=== PATIENT | female | born 1940 | race Caucasian/White ===

== ENCOUNTER 2018-07-03 15:44 | Inpatient (IN) | payer OTHER ==
[~2018-07-03] VITALS: Ht 152.4 cm; Wt 75.1 kg
[~2018-07-03 15:44] MED LIST: ATOR40TA68 PO; FURO-149 PO; HYDR-4037 PO; Hydrocodone Bit/Acetaminophen PO; LISI40TA4 PO; METF500T7 PO; NIFE90TA53 PO; POTA20TA83 PO; RIVA10TA PO
[2018-07-03 15:50] VITALS: BP_SYST 203
[2018-07-03] MEDS ORDERED: NACL 0.9% 1,000 ML IV ONE (15:55)
[2018-07-03] MEDS ORDERED: MORPHINE 4 MG/ML INJ. SYRINGE IVP ONE (16:00)
[2018-07-03] MEDS ORDERED: ONDANSETRON HCL 4 MG/2 ML VIAL IVP ONE (16:00)
[2018-07-03 17:20] LABS: PROTHROMBIN TIME 9.9 SECS (9.5-12.5)
[2018-07-03 17:25] LABS: ANION GAP 6 (5-15); CALCIUM 10.4 mg/dL (8.4-11.0); CHLORIDE 103 mmol/L (98-107); CREATININE 1.19 mg/dL (0.55-1.30); GLUCOSE 126 mg/dL (70-99); POTASSIUM 3.5 mmol/L (3.5-5.1); SODIUM SERUM 136 mmol/L (136-145); UREA NITROGEN, BLOOD 18 mg/dL (8-21)
[2018-07-03 17:25] LABS: BILIRUBIN,URINE NEGATIVE (NEGATIVE); BLOOD, URINE NEGATIVE (NEGATIVE); CLARITY/URINE CLEAR (CLEAR); COLOR,URINE YELLOW (YELLOW); GLUCOSE,URINE NEGATIVE (NEGATIVE); KETONES,URINE NEGATIVE (NEGATIVE); LEUKOCYTE ESTERASE ,URINE NEGATIVE (NEGATIVE); NITRITE, URINE NEGATIVE (NEGATIVE); PH,URINE 6.5 (5.0-8.0); PROTEIN URINE TRACE (NEGATIVE); UROBILINOGEN,URINE 0.2 (0.2-1.0)
[2018-07-03 17:29] LABS: ALANINE AMINOTRANSFERASE 17 U/L (12-78); ALBUMIN 3.4 g/dL (3.4-4.8); AMYLASE 78 U/L (0-100); ASPARTATE AMINOTRANSFERASE 16 U/L (10-37); LIPASE 177 U/L (73-393); TOTAL BILIRUBIN 0.2 mg/dL (0.0-1.0)
[2018-07-03 17:31] LABS: BACTERIA,URINE RARE /HPF (None Seen); HEMOGLOBIN 11.2 g/dL (12.0-16.0); MEAN CORPUSCULAR HEMOGLOBIN 29 pg (27-31); MEAN CORPUSCULAR HGB CONC 33 % (32-36); MEAN CORPUSCULAR VOLUME 89 fL (79.0-98.0); NEUTROPHILS % (AUTO) 57.9 % (40.0-70.0); PLATELET COUNT (AUTO) 327 K/uL (130-430); RBC,URINE 0-3 /HPF (0-3); RED BLOOD CELL COUNT(AUTO) 3.82 MIL/uL (4.2-6.2); RED CELL DISTRIBUTION WIDTH 16.2 % (9.0-15.0); WBC,URINE 0-3 /HPF (0-3); WHITE BLOOD COUNT (AUTO) 5.6 K/uL (4.8-10.8)
[2018-07-03 17:32] LABS: BASOPHILS % (AUTO) 0.9 % (0.0-2.0); EOSINOPHILS # (AUTO) 0.1 K/uL (0.0-0.4); EOSINOPHILS % (AUTO) 2.7 % (0.0-4.0); LYMPHOCYTES # (AUTO) 1.5 K/uL (1.0-5.5); LYMPHOCYTES % (AUTO) 27.6 % (20.5-51.5); MONOCYTES # (AUTO) 0.6 K/uL (0.0-1.0); MONOCYTES % (AUTO) 10.9 % (1.7-9.3); NEUTROPHILS # (AUTO) 3.2 K/uL (1.8-7.7)
[2018-07-03 19:25] VITALS: BP_SYST 209
[2018-07-03 20:00] VITALS: BP_SYST 209
[2018-07-03] MEDS: MORPHINE 4 MG/ML INJ. SYRINGE IVP PRN (21:49)
[2018-07-03] MEDS: hydrALAZINE HCL 25 MG TABLET PO PRN (22:25)
[2018-07-03] MEDS ORDERED: ALBUTEROL SULFATE 0.083% 2.5 MG/3 ML VIAL.NEB INH PRN (23:30)
[2018-07-03] MEDS ORDERED: ACETAMINOPHEN 325 MG TABLET PO PRN (23:30)
[2018-07-04] VITALS (10 sets, daily range): BP systolic 119–201
[2018-07-04] MEDS: MORPHINE 4 MG/ML INJ. SYRINGE IVP PRN ×5 (02:32→21:33)
[2018-07-04] MEDS: hydrALAZINE HCL 25 MG TABLET PO PRN ×2 (02:33→06:13)
[2018-07-04] MEDS ORDERED: LISINOPRIL 20 MG TABLET PO ONE (07:00)
[2018-07-04 07:08] LABS: HEMATOCRIT 33.6 % (36-48); HEMOGLOBIN 11.2 g/dL (12.0-16.0); MEAN CORPUSCULAR HEMOGLOBIN 29 pg (27-31); MEAN CORPUSCULAR VOLUME 87 fL (79.0-98.0); RED BLOOD CELL COUNT(AUTO) 3.85 MIL/uL (4.2-6.2); WHITE BLOOD COUNT (AUTO) 7.4 K/uL (4.8-10.8)
[2018-07-04 07:09] LABS: BASOPHILS % (AUTO) 0.6 % (0.0-2.0); EOSINOPHILS % (AUTO) 0.2 % (0.0-4.0); LYMPHOCYTES # (AUTO) 0.5 K/uL (1.0-5.5); LYMPHOCYTES % (AUTO) 7.3 % (20.5-51.5); MEAN CORPUSCULAR HGB CONC 33 % (32-36); MONOCYTES # (AUTO) 0.4 K/uL (0.0-1.0); MONOCYTES % (AUTO) 5.2 % (1.7-9.3); NEUTROPHILS # (AUTO) 6.4 K/uL (1.8-7.7); NEUTROPHILS % (AUTO) 86.7 % (40.0-70.0); PLATELET COUNT (AUTO) 331 K/uL (130-430); RED CELL DISTRIBUTION WIDTH 16.1 % (9.0-15.0)
[2018-07-04 07:23] LABS: PROTHROMBIN TIME 10.1 SECS (9.5-12.5)
[2018-07-04 07:24] LABS: ANION GAP 6 (5-15); CALCIUM 9.7 mg/dL (8.4-11.0); CHLORIDE 103 mmol/L (98-107); CREATININE 0.98 mg/dL (0.55-1.30); GLUCOSE 202 mg/dL (70-99); POTASSIUM 3.7 mmol/L (3.5-5.1); SODIUM SERUM 137 mmol/L (136-145); UREA NITROGEN, BLOOD 15 mg/dL (8-21)
[2018-07-04 07:34] LABS: ALANINE AMINOTRANSFERASE 14 U/L (12-78); ALBUMIN 3.1 g/dL (3.4-4.8); ASPARTATE AMINOTRANSFERASE 15 U/L (10-37); TOTAL BILIRUBIN 0.3 mg/dL (0.0-1.0)
[2018-07-04] MEDS: ATORVASTATIN 20 MG TABLET PO SCH (08:42)
[2018-07-04] MEDS ORDERED: RIVAROXABAN 10 MG TABLET PO SCH (09:00)
[2018-07-04] MEDS ORDERED: ACETAMINOPHEN 325 MG TABLET PO PRN (09:45)
[2018-07-04] MEDS ORDERED: NIFEDIPINE 90 MG PO SCH (09:45)
[2018-07-04] MEDS ORDERED: ENALAPRILAT DIHYDRATE 1.25 MG/ML VIAL IVP PRN (09:45)
[2018-07-04] MEDS ORDERED: hydrALAZINE HCL 20 MG/ML VIAL IVP PRN (09:45)
[2018-07-04] MEDS ORDERED: cloNIDine HCL 0.1 MG TABLET PO PRN (09:45)
[2018-07-04] MEDS: ONDANSETRON HCL 4 MG/2 ML VIAL IVP PRN ×2 (09:58→17:20)
[2018-07-04] MEDS ORDERED: FUROSEMIDE 40 MG TABLET PO ONE (10:00)
[2018-07-04] MEDS ORDERED: NIFEDIPINE 90 MG TABLET.SA (PROCARDIA XL 90 MG) PO ONE (10:00)
[2018-07-04] MEDS ORDERED: NIFEDIPINE 90 MG PO ONE (10:00)
[2018-07-04] MEDS: INSULIN REGULAR, HUMAN 100 UNITS/ML, 10 ML VIAL (novoLIN R) SUBCUT PRN ×2 (11:45→17:08)
[2018-07-04] MEDS: METOCLOPRAMIDE HCL 10 MG/2 ML VIAL IVP PRN (21:41)
[2018-07-05] MEDS: ONDANSETRON HCL 4 MG/2 ML VIAL IVP PRN (03:48)
[2018-07-05] MEDS: MORPHINE 4 MG/ML INJ. SYRINGE IVP PRN ×2 (03:49→08:49)
[2018-07-05 04:17] VITALS: BP_SYST 116
[2018-07-05 08:00] VITALS: BP_SYST 114
[2018-07-05] MEDS: METOCLOPRAMIDE HCL 10 MG/2 ML VIAL IVP PRN (08:48)
[2018-07-05] MEDS: ATORVASTATIN 20 MG TABLET PO SCH (08:59)
[2018-07-05] MEDS: LISINOPRIL 20 MG TABLET PO SCH (09:00)
[2018-07-05] MEDS ORDERED: FUROSEMIDE 40 MG TABLET PO SCH (09:00)
[2018-07-05] MEDS: NIFEDIPINE 90 MG TABLET.SA (PROCARDIA XL 90 MG) PO SCH (09:00)
[2018-07-05 11:28] VITALS: BP_SYST 126
[2018-07-05] MEDS: RIVAROXABAN 10 MG TABLET PO SCH (14:13)
[2018-07-05 15:53] VITALS: BP_SYST 117
[2018-07-05] MEDS ORDERED: IOHEXOL 350 mgI/mL, 150 ML INFUS..BTL IV ONE (18:32)
[2018-07-05 20:00] VITALS: BP_SYST 149
[2018-07-05] MEDS: INSULIN REGULAR, HUMAN 100 UNITS/ML, 10 ML VIAL (novoLIN R) SUBCUT PRN (21:36)
[2018-07-06 00:34] VITALS: BP_SYST 130
[2018-07-06 07:58] VITALS: BP_SYST 130
[2018-07-06 08:00] VITALS: BP_SYST 123
[2018-07-06] MEDS: ATORVASTATIN 20 MG TABLET PO SCH (09:51)
[2018-07-06] MEDS: NIFEDIPINE 90 MG TABLET.SA (PROCARDIA XL 90 MG) PO SCH (09:52)
[2018-07-06] MEDS: LISINOPRIL 20 MG TABLET PO SCH (09:52)
[2018-07-06] MEDS: RIVAROXABAN 10 MG TABLET PO SCH (09:54)
[2018-07-06 11:52] VITALS: BP_SYST 139
[2018-07-06 12:48] VITALS: BP_SYST 139
[2018-07-06] MEDS ORDERED: RIVA20TA PO (12:53)
[2018-07-06] MEDS ORDERED: ALBUTERAL (12:55)
[2018-07-06] MEDS ORDERED: ALBMDI INH (12:55)
[2018-07-06 15:18] VITALS: BP_SYST 143
== END 2018-07-06 17:00 | disposition home health service (06) | DRG 175 ==
LOC: SED 15:44 → STU 18:38
PROVIDERS: ADMIT Internal Medicine; ATTEND Internal Medicine
DX: I26.99 Other pulmonary embolism without acute cor pulmonale (principal); J96.01 Acute respiratory failure with hypoxia; Y93.89 Activity, other specified; E11.9 Type 2 diabetes mellitus without complications; S70.02XA Contusion of left hip, initial encounter; I44.1 Atrioventricular block, second degree; I48.0 Paroxysmal atrial fibrillation; E78.5 Hyperlipidemia, unspecified; I10 Essential (primary) hypertension; R79.1 Abnormal coagulation profile; W18.30XA Fall on same level, unspecified, initial encounter; Z96.651 Presence of right artificial knee joint; Y92.89 Other specified places as the place of occurrence of the external cause; Y99.8 Other external cause status; Z79.01 Long term (current) use of anticoagulants; Z83.3 Family history of diabetes mellitus; Z91.14 Patient's other noncompliance with medication regimen; Z91.19 Patient's noncompliance with other medical treatment and regimen; Z79.84 Long term (current) use of oral hypoglycemic drugs; Z79.899 Other long term (current) drug therapy
CPT/HCPCS: 36415; 36600; 71045; 71275; 72100-TC; 73502; 73552; 80053; 81000-TC; 82150-TC; 82550-TC; 82803-TC; 82962; 83690-TC; 84484; 85025; 85379; 85610-TC; 85730-TC; 90656; 93005; 93306; 96361; 96374; 96375; 97110-GP; 97116-GP; 97530-GP; 99285; G0378; J1815; J2270; J2405; J2765; J7030; Q9967

== ENCOUNTER 2021-11-21 14:18 | Emergency (ER) | payer OTHER ==
[~2021-11-21] VITALS: Ht 162.6 cm; Wt 68.0 kg
[~2021-11-21 14:18] MED LIST changes: +ALBMDI INH; -FURO-149 PO; -HYDR-4037 PO; +LISI40TA13 PO; -LISI40TA4 PO; +METF-1069 PO; -METF500T7 PO; +NIFE90TA PO; -NIFE90TA53 PO; -POTA20TA83 PO; -RIVA10TA PO; +RIVA20TA PO
[2021-11-21 15:02] VITALS: BP_SYST 236
--- NOTE | 2021-11-21 16:09 | NUR ---
Pt in bed #6 coming from home c/o x4 days having right eye pain, redness, and blurred vision. As well as accompanied by headache 7/10 constant non-radiating. Pt is A&Ox4. Ambulatory with unsteady gait accompanied by daughter. No chest pain and no sob. Denies n/v. NKA. Has hx of pacemaker, DM, HTN, and Hyperlipidemia. BP elevated at 229/107, other vitals stable.
--- NOTE | 2021-11-21 16:13 | NUR ---
ER at bedside examining patient.
--- NOTE | 2021-11-21 16:23 | NUR ---
Daniel pen and morales lamp at bedside.
[2021-11-21] MEDS ORDERED: HYDR-4039 PO (16:30)
[2021-11-21] MEDS ORDERED: METF-834 PO (16:30)
[2021-11-21] MEDS ORDERED: GLIP5TAB26 PO (16:30)
[2021-11-21] MEDS ORDERED: MECL-108 PO (16:30)
[2021-11-21] MEDS ORDERED: TETRACAINE HCL/PF 0.5% OPHTHALMIC DROPS 4 ML OP ONE (16:30)
[2021-11-21] MEDS ORDERED: FURO-150 PO (16:30)
--- NOTE | 2021-11-21 16:31 | NUR ---
Medication reconciliation completed with information provided by patient's medication list. Any prior medication reconciliation on file was reviewed and corrected.
[2021-11-21] MEDS ORDERED: FLUORESCEIN SODIUM 1 MG OPHTHALMIC STRIP OP ONE (16:45)
[2021-11-21] MEDS ORDERED: TIMOLOL MALEATE 0.5% OPHTHALMIC DROPS 5 ML OP SCH (17:00)
[2021-11-21] MEDS ORDERED: MANNITOL 25% 12.5GM/50 ML VIAL IVP ONE (17:00)
[2021-11-21] MEDS ORDERED: BRIMONIDINE TARTRATE 0.2% 5 mL EYE DROPS OP SCH ×2 (17:00→22:00)
[2021-11-21] MEDS ORDERED: BRIMONIDINE TARTRATE 0.2% 5 mL EYE DROPS OP ONE (17:00)
[2021-11-21] MEDS ORDERED: PILOCARPINE 2% OPHTHALMIC DROPS (ISOPTO CARPINE) OP SCH ×2 (17:00→21:00)
[2021-11-21] MEDS ORDERED: TIMOLOL MALEATE 0.5% OPHTHALMIC DROPS 5 ML OP ONE (17:00)
[2021-11-21] MEDS ORDERED: PILOCARPINE 2% OPHTHALMIC DROPS (ISOPTO CARPINE) OP ONE (17:00)
--- NOTE | 2021-11-21 17:06 | NUR ---
# 20 gauge angiocath placed to left AC. Use of asceptic technique. Opsite placed over site. Blood return noted. Blood for lab drawn from site. Flushed with 10 cc of normal saline. No evidence of infiltration noted. Patient tolerated well.
[2021-11-21] MEDS ORDERED: LABETALOL HCL 20 MG/4 ML CARTRIDGE IVP ONE ×2 (17:15→18:00)
[2021-11-21 17:25] LABS: BASOPHILS # (AUTO) 0.1 K/uL (0.0-0.2); EOSINOPHILS # (AUTO) 0.3 K/uL (0.0-0.4); MEAN CORPUSCULAR VOLUME 87 fL (79.0-98.0); MONOCYTES # (AUTO) 0.6 K/uL (0.0-1.0)
[2021-11-21 17:29] LABS: ANION GAP 4 (5-15); CALCIUM 10.5 mg/dL (8.4-11.0); CHLORIDE 99 mmol/L (98-107); CREATININE 1.16 mg/dL (0.55-1.30); GLUCOSE 150 mg/dL (70-99); POTASSIUM 4.1 mmol/L (3.5-5.1); SODIUM SERUM 134 mmol/L (136-145); UREA NITROGEN, BLOOD 13 mg/dL (8-21)
[2021-11-21 17:30] LABS: BASOPHILS % (AUTO) 0.8 % (0.0-2.0); EOSINOPHILS % (AUTO) 3.6 % (0.0-4.0); HEMATOCRIT 32.7 % (36-48); LYMPHOCYTES # (AUTO) 1.8 K/uL (1.0-5.5); LYMPHOCYTES % (AUTO) 23.4 % (20.5-51.5); MEAN CORPUSCULAR HEMOGLOBIN 29 pg (27-31); MEAN CORPUSCULAR HGB CONC 34 % (32-36); MONOCYTES % (AUTO) 8.1 % (1.7-9.3); NEUTROPHILS % (AUTO) 64.1 % (40.0-70.0); PLATELET COUNT (AUTO) 386 K/uL (130-430); RED BLOOD CELL COUNT(AUTO) 3.76 MIL/uL (4.2-6.2); RED CELL DISTRIBUTION WIDTH 14.2 % (9.0-15.0); WHITE BLOOD COUNT (AUTO) 7.7 K/uL (4.8-10.8)
[2021-11-21 17:35] LABS: ALANINE AMINOTRANSFERASE 12 U/L (12-78); ALBUMIN 3.3 g/dL (3.4-4.8); ASPARTATE AMINOTRANSFERASE 14 U/L (10-37); TOTAL BILIRUBIN 0.3 mg/dL (0.0-1.0)
[2021-11-21] MEDS ORDERED: MORPHINE 4 MG INJ. 4 MG/ML VIAL IVP ONE (18:00)
--- NOTE | 2021-11-21 18:03 | NUR ---
NASREENID swabbed, sen to lab.
[2021-11-21 18:10] LABS: ERYTHROCYTE SEDIMENTATION RATE 58 MM/HR (0-20)
[2021-11-21] MEDS ORDERED: MORPHINE 4 MG INJ. 4 MG/ML VIAL ONE (18:40)
[2021-11-21] MEDS ORDERED: ONDA-8 TL (18:43)
[2021-11-21 19:06] VITALS: BP_SYST 179
--- NOTE | 2021-11-21 19:06 | NUR ---
Patient given written and verbal discharge instructions and verbalizes understanding. ER MD discussed with patient the results and treatment provided. Patient in stable condition. ID arm band removed. IV catheter removed intact and dressing applied, no active bleeding. Rx of Zofran given. Patient educated on pain management and to follow up with PMD. Pain Scale 0/10. Opportunity for questions provided and answered. Medication side effect fact sheet provided.
[2021-11-22] MEDS ORDERED: TIMOLOL MALEATE 0.5% OPHTHALMIC DROPS 5 ML OP SCH (09:00)
== END 2021-11-21 19:06 | disposition home or self-care (01) ==
LOC: SED 14:18
DX: H40.211 Acute angle-closure glaucoma, right eye (principal); H54.61 Unqualified visual loss, right eye, normal vision left eye; E11.9 Type 2 diabetes mellitus without complications; I10 Essential (primary) hypertension; Z79.899 Other long term (current) drug therapy; Z20.822 Contact with and (suspected) exposure to COVID-19
CPT/HCPCS: 99291; 96374; 96375; 87426; 80053; 85025; 85651; 36415; 96376; J1120; J2150; J2270

== ENCOUNTER 2021-11-23 10:26 | Emergency (ER) | payer OTHER ==
[~2021-11-23] VITALS: Ht 162.6 cm; Wt 68.0 kg
[~2021-11-23 10:26] MED LIST changes: +FURO-150 PO; +GLIP5TAB26 PO; +HYDR-4039 PO; +MECL-108 PO; +METF-834 PO; +ONDA-8 TL
[2021-11-23 10:30] VITALS: BP_SYST 134
--- NOTE | 2021-11-23 10:35 | NUR ---
Placed in room 8 . Placed on residential monitor, blood pressure machine and pulse oximeter. To gown for exam. Side rails up. Report given to THANH REDDY.
--- NOTE | 2021-11-23 10:46 | NUR ---
Pt BIB dtr for ogoing symptoms with R eye. Pt was seen here Wednesday and did follow up with optho on Wednesday, but remains in pain and with swelling and has currently been unable to get in to see PMD to make further optho appt. Pending MD yang. Addendum: 11/23/21 at 1047 by [email or web address] *ongoing
--- NOTE | 2021-11-23 11:35 | NUR ---
Pt walked ambulatory to rm 4 for continuation of care
[2021-11-23] MEDS ORDERED: PERC10 PO (12:20)
--- NOTE | 2021-11-23 12:20 | NUR ---
ER Dr. Martin at bedside examining patient.
--- NOTE | 2021-11-23 13:02 | NUR ---
Patient given written and verbal discharge instructions and verbalizes understanding. ER MD discussed with patient the results and treatment provided. Patient in stable condition. ID arm band removed. Rx of PERCOCET given. Patient educated on pain management and to follow up with PMD. Pain Scale 0/10. Opportunity for questions provided and answered. Medication side effect fact sheet provided.
== END 2021-11-23 13:02 | disposition home or self-care (01) ==
LOC: SED 10:26
DX: H40.1111 Primary open-angle glaucoma, right eye, mild stage (principal); E11.9 Type 2 diabetes mellitus without complications; I10 Essential (primary) hypertension; Z79.899 Other long term (current) drug therapy
CPT/HCPCS: 99283

== ENCOUNTER 2021-12-12 10:51 | Inpatient (IN) | payer OTHER ==
[~2021-12-12] VITALS: Ht 152.4 cm; Wt 72.6 kg
[~2021-12-12 10:51] MED LIST changes: -ALBMDI INH; -Hydrocodone Bit/Acetaminophen PO; -METF-1069 PO; +PERC10 PO; -RIVA20TA PO
[2021-12-12 10:55] VITALS: BP_SYST 122
--- NOTE | 2021-12-12 10:55 | NUR ---
Patient to ER bed 7 to gown for evaluation. Side rails up. Report given to KASSIE LAW.
--- NOTE | 2021-12-12 11:16 | NUR ---
ER at bedside examining patient.
--- NOTE | 2021-12-12 11:33 | NUR ---
BIB DAUGHTER WITH C/O L SIDED WEAKNESS, UNSTEADY GAIT AND NOT ACTING NORMAL SINCE FALL 12/01. DAUGHTER STATES PT WAS FOUND IN BATHROOM ON THE FLOOR YESTERDAY. NO OBVIOUS SIGNS OF TRAUMA. PT IS CONFUSED BUT HAS BASELINE GCS 15. RESP EVEN AND UNLABORED. VSS. WILL CONT TO MONITOR.
[2021-12-12 11:50] LABS: BASOPHILS % (AUTO) 0.5 % (0.0-2.0); EOSINOPHILS # (AUTO) 0.1 K/uL (0.0-0.4); EOSINOPHILS % (AUTO) 1.6 % (0.0-4.0); HEMATOCRIT 32.2 % (36-48); LYMPHOCYTES # (AUTO) 1.1 K/uL (1.0-5.5); LYMPHOCYTES % (AUTO) 12.1 % (20.5-51.5); MEAN CORPUSCULAR HEMOGLOBIN 30 pg (27-31); MEAN CORPUSCULAR HGB CONC 34 % (32-36); MEAN CORPUSCULAR VOLUME 87 fL (79.0-98.0); MONOCYTES # (AUTO) 0.5 K/uL (0.0-1.0); MONOCYTES % (AUTO) 5.8 % (1.7-9.3); PLATELET COUNT (AUTO) 303 K/uL (130-430); RED BLOOD CELL COUNT(AUTO) 3.71 MIL/uL (4.2-6.2); RED CELL DISTRIBUTION WIDTH 15.2 % (9.0-15.0); WHITE BLOOD COUNT (AUTO) 8.8 K/uL (4.8-10.8)
[2021-12-12 12:07] LABS: BILIRUBIN,URINE NEGATIVE (NEGATIVE); BLOOD, URINE NEGATIVE (NEGATIVE); CLARITY/URINE SL CLOUDY (CLEAR); COLOR,URINE YELLOW (YELLOW); GLUCOSE,URINE NEGATIVE (NEGATIVE); KETONES,URINE NEGATIVE (NEGATIVE); LEUKOCYTE ESTERASE ,URINE NEGATIVE (NEGATIVE); NITRITE, URINE NEGATIVE (NEGATIVE); PH,URINE 5.5 (5.0-8.0); PROTEIN URINE NEGATIVE (NEGATIVE); UROBILINOGEN,URINE 0.2 (0.2-1.0)
[2021-12-12 12:12] LABS: ANION GAP 13 (5-15); CALCIUM 11.1 mg/dL (8.4-11.0); CHLORIDE 107 mmol/L (98-107); CREATININE 1.43 mg/dL (0.55-1.30); GLUCOSE 85 mg/dL (70-99); SODIUM SERUM 138 mmol/L (136-145); UREA NITROGEN, BLOOD 20 mg/dL (8-21)
[2021-12-12 12:17] LABS: BARBITURATE, URINE NEGATIVE (NEG <=200); BENZODIAZEPINE, URINE NEGATIVE (NEG <=150); CANNABINOID, URINE NEGATIVE (NEG <=50); COCAINE, URINE NEGATIVE (NEG <=150); METHAMPHETAMINES SCREEN,URINE NEGATIVE (NEG <=500); OPIATE, URINE NEGATIVE (NEG <=100); PHENCYCLIDINE SCREEN,URINE NEGATIVE (NEG <=25); UR TRICYCLIC ANTIDEPRESSANTS NEGATIVE (NEG <=300); URINE AMPHETAMINE NEGATIVE (NEG <=500); URINE METHADONE NEGATIVE (NEG <=200); URINE OXYCODONE SCREEN NEGATIVE (NEG <=100); URINE PROPOXYPHENE SCREEN NEGATIVE (NEG <=300)
[2021-12-12 12:17] LABS: PROTHROMBIN TIME 10.5 SECS (9.5-12.5)
[2021-12-12 12:22] LABS: ALANINE AMINOTRANSFERASE 17 U/L (12-78); ALBUMIN 3.3 g/dL (3.4-4.8); ASPARTATE AMINOTRANSFERASE 40 U/L (10-37); TOTAL BILIRUBIN 0.6 mg/dL (0.0-1.0)
[2021-12-12 12:23] LABS: ALCOHOL, BLOOD < 3 mg/dL (<10)
[2021-12-12] MEDS ORDERED: POTASSIUM CHLORIDE 20 MEQ TAB.PRT.SR PO ONE (13:15)
[2021-12-12] MEDS ORDERED: ASPIRIN 325 MG TABLET PO ONE (13:15)
--- NOTE | 2021-12-12 13:24 | NUR ---
PT RSTING COMFORTABLY WITH DAUGHTER AT BEDSIDE. PT APPEARS MORE ALERT, TALKING TO DAUGHTER. DENIES CHEST PAIN OR SOB. NO DISTRESS NOTED. VSS. RESP EVEWN AND UNLABORED. AWAITING ADMISSION. WILL CONT TO MONITOR
[2021-12-12] MEDS ORDERED: BRI.2% (14:01)
[2021-12-12] MEDS ORDERED: MECO10005 (14:01)
[2021-12-12] MEDS ORDERED: ACET500C48 PO (14:01)
[2021-12-12] MEDS ORDERED: LATA2.5D14 (14:01)
[2021-12-12] MEDS ORDERED: DORZ10DR13 (14:01)
--- NOTE | 2021-12-12 14:14 | NUR ---
NASREENID Swabbed, sent to lab.
--- NOTE | 2021-12-12 15:30 | NUR ---
NO CHANGE IN STATUS. RESP EVEN AND UNLABORED. VSS. AWAITING TELE BED
[2021-12-12] MEDS ORDERED: 0.45% NACL 1,000 ML IV SCH (17:45)
[2021-12-12] MEDS ORDERED: INSULIN REGULAR, HUMAN 100 UNITS/ML, 10 ML VIAL (humuLIN R) SUBCUT PRN (17:45)
[2021-12-12] MEDS: LATANOPROST 2.5 ML DROPS (XALATAN) OP SCH (18:00)
[2021-12-12 18:33] VITALS: BP_SYST 143
[2021-12-12 20:00] VITALS: BP_SYST 126
[2021-12-12] MEDS: hydrALAZINE HCL 25 MG TABLET PO SCH (20:43)
[2021-12-12] MEDS: DORZOLAMIDE HCL/TIMOLOL MAL. 10 ML EYE DROPS (COSOPT) OP SCH (20:43)
[2021-12-12] MEDS: BRIMONIDINE TARTRATE 0.2% 5 mL EYE DROPS OP SCH (20:44)
--- NOTE | 2021-12-12 22:16 | NUR ---
Patient in bed. No acute distress noted. Turned repositioned q2.
[2021-12-13] VITALS: BP_SYST 134
--- NOTE | 2021-12-13 04:07 | NUR ---
Patient pulled out her IV x2.
[2021-12-13 07:34] LABS: BASOPHILS # (AUTO) 0.1 K/uL (0.0-0.2); BASOPHILS % (AUTO) 0.9 % (0.0-2.0); EOSINOPHILS # (AUTO) 0.2 K/uL (0.0-0.4); EOSINOPHILS % (AUTO) 3.3 % (0.0-4.0); HEMATOCRIT 30.7 % (36-48); HEMOGLOBIN 10.5 g/dL (12.0-16.0); LYMPHOCYTES # (AUTO) 1.5 K/uL (1.0-5.5); LYMPHOCYTES % (AUTO) 22.1 % (20.5-51.5); MEAN CORPUSCULAR HEMOGLOBIN 30 pg (27-31); MEAN CORPUSCULAR HGB CONC 34 % (32-36); MEAN CORPUSCULAR VOLUME 87 fL (79.0-98.0); MONOCYTES # (AUTO) 0.5 K/uL (0.0-1.0); MONOCYTES % (AUTO) 7.8 % (1.7-9.3); NEUTROPHILS # (AUTO) 4.4 K/uL (1.8-7.7); NEUTROPHILS % (AUTO) 65.9 % (40.0-70.0); PLATELET COUNT (AUTO) 269 K/uL (130-430); RED BLOOD CELL COUNT(AUTO) 3.52 MIL/uL (4.2-6.2); RED CELL DISTRIBUTION WIDTH 15.8 % (9.0-15.0); WHITE BLOOD COUNT (AUTO) 6.7 K/uL (4.8-10.8)
[2021-12-13 08:00] VITALS: BP_SYST 136
--- NOTE | 2021-12-13 08:00 | NUR ---
Initial Notes Patient in bed resting, awake. Patient is AOx3, confused. No s/s of distress noted. No SOB noted. Breathing is even and nonlabored, on room air. Patient denies pain. Vital Signs obtained, as documented. Safety precautions in place and call light within reach. Addendum: 12/13/21 at 1633 by Caitlyn Hurtado LVN Initial Notes Patient in bed resting, awake. Patient is AOx3, confused. No s/s of distress noted. No SOB noted. Breathing is even and nonlabored, on room air. Patient denies pain. Vital Signs obtained, as documented. Patient NPO. Patient to have US of the abdomen today. Safety precautions in place and call light within reach.
[2021-12-13 08:09] LABS: ALANINE AMINOTRANSFERASE 16 U/L (12-78); ALBUMIN 2.8 g/dL (3.4-4.8); ANION GAP 10 (5-15); ASPARTATE AMINOTRANSFERASE 32 U/L (10-37); CALCIUM 11.1 mg/dL (8.4-11.0); CHLORIDE 109 mmol/L (98-107); CREATININE 1.39 mg/dL (0.55-1.30); GLUCOSE 106 mg/dL (70-99); POTASSIUM 3.4 mmol/L (3.5-5.1); SODIUM SERUM 137 mmol/L (136-145); TOTAL BILIRUBIN 0.3 mg/dL (0.0-1.0); UREA NITROGEN, BLOOD 25 mg/dL (8-21)
[2021-12-13] MEDS: hydrALAZINE HCL 25 MG TABLET PO SCH ×2 (09:25→21:03)
[2021-12-13] MEDS: lisinopriL 20 MG TABLET PO SCH (09:25)
[2021-12-13] MEDS: ATORVASTATIN 20 MG TABLET PO SCH (09:26)
[2021-12-13] MEDS: DORZOLAMIDE HCL/TIMOLOL MAL. 10 ML EYE DROPS (COSOPT) OP SCH ×2 (09:26→21:04)
[2021-12-13] MEDS: BRIMONIDINE TARTRATE 0.2% 5 mL EYE DROPS OP SCH ×2 (09:27→21:04)
--- NOTE | 2021-12-13 11:30 | NUR ---
Notes Patient has been cleaned and repositioned. Ultrasound was done. Family at bedside. Safety precautions in place and call light within reach.
[2021-12-13] MEDS: D5/0.45 NS 1,000 ML IV SCH (12:21)
--- NOTE | 2021-12-13 12:30 | NUR ---
Notes Patient was evaluated by PT earlier. Patient is now eating lunch. Sitting at the edge of the bed. Family at bedside. Safety precautions in place and call light within reach.
[2021-12-13 12:41] VITALS: BP_SYST 109
--- NOTE | 2021-12-13 15:30 | NUR ---
PT WAS SEEN FOR DYSPHAGIA. PT WAS ABLE TO SAFELY SWALLOW MS DIET WITH THIN LIQUID WITHOUT S/S OF ASPIRATION. RECOMMENDATION MS DIET WITH THIN LIQUID
--- NOTE | 2021-12-13 16:33 | NUR ---
Notes Patient is resting, eyes closed. No s.s of distress noted. NO SOB. No facial grimace noted. Breathing is even and nonlabored. Safety precautions in place and call light within reach.
[2021-12-13] MEDS: LATANOPROST 2.5 ML DROPS (XALATAN) OP SCH (17:06)
[2021-12-13 17:09] VITALS: BP_SYST 144
[2021-12-13 19:35] VITALS: BP_SYST 147
--- NOTE | 2021-12-13 19:36 | NUR ---
Closing Notes Patient is resting. Family at bedside. Breathing is even and nonlabored, on room air. Denies pain. NO distress noted. NO SOB. All needs met. Endorsed care to incoming nurse. Safety precautions in place and call light within reach.
--- NOTE | 2021-12-13 19:40 | NUR ---
INITIAL NOTE AT INITIAL ASSESSMENT, PATIENT IS RESTING IN BED, STABLE, NO SIGNS OF RESPIRATORY DISTRESS. PATIENT VERBALIZES NO PAIN. PLAN OF CARE FOR THE EVENING IS COMMUNICATED WITH THE PATIENT AND HER DAUGHTER AT BEDSIDE. CALL LIGHT TEACH BACK IS UNSUCCESSFUL DUE TO PATIENT'S COGNITIVE IMPAIRMENT; PATIENT IS PLEASANTLY CONFUSED. SHE WILL BE IN AN ROOM CLOSE TO THE NURSING STATION FOR CLOSE MONITORING. BED IS LOCKED, ALARMED, AND AT THE LOWEST LEVEL. FALL, SAFETY, AND ASPIRATION PRECAUTIONS WILL BE IN PLACE THROUGHOUT THE SHIFT.
--- NOTE | 2021-12-13 20:18 | NUR ---
COMMUNICATION W/ Gypsy PATRICK. DR. GONZALEZ PAGED TO CLARIFY WHAT TIME HE WOULD TO SCHEDULE TROPONIN DRAW SINCE THEY WERE NOT ABLE TO DRAW DURING AM SHIFT. DR. GONZALEZ ASKED FOR TROPONIN TO BE DRAWN STAT. ORDER READ BACK, VERIFIED, AND WILL BE CARRIED OUT IMMEDIATELY.
--- NOTE | 2021-12-13 20:30 | NUR ---
HYGIENE CARE PATIENT PLACED ON BEDPAN FOR VOID. PATIENT TOLERATED WELL. HYGIENE CARE PROVIDED. SHE IS REPOSITIONED FOR COMFORT. BED IS LOCKED, ALARMED, AND AT THE LOWEST LEVEL.
[2021-12-13] MEDS: DONEPEZIL HCL 5 MG TABLET (ARICEPT) PO SCH (21:02)
--- NOTE | 2021-12-13 23:55 | NUR ---
COMMUNICATION W/ DR. CARLOS GONZALEZ PAGED, PATIENT'S COMPLAINT OF PAIN COMMUNICATED, PATIENT'S DAUGHTER'S REQUEST FOR MRI OF THE HEAD TO RULE OUT STROKE ALSO COMMUNICATED. DR. GONZALEZ GRANTED NEW ORDERS. ALL ORDERS READ BACK, VERIFIED, AND WILL BE CARRIED OUT AT THIS TIME.
[2021-12-14] VITALS (7 sets, daily range): BP systolic 112–161
[2021-12-14] MEDS ORDERED: ACETAMINOPHEN 325 MG TABLET PO PRN
--- NOTE | 2021-12-14 00:11 | NUR ---
CONSULTATION CALLED FOR DR. BACON FOR CONSULT OF CHEST PAIN ORDER BY DR. GONZALEZ SPOKE WITH, STAFF HUNG UP PHONE BEFORE NAME WAS TAKEN
--- NOTE | 2021-12-14 06:45 | NUR ---
CLOSING NOTE PATIENT REMAINED SLIGHTLY CONFUSED DURING THE NIGHT, SHE ALSO DEMONSTRATED LEFT SIDED DEFICITS ON UPPER AND LOWER EXTREMITY, NO FACIAL DROOP OR DIFFICULTY SWALLOWING. SHE SLEPT WELL DURING THE SHIFT. AT THIS TIME, PATIENT IS RESTING IN BED, STABLE, NO SIGNS OF RESPIRATORY DISTRESS. BED IS LOCKED, AND AT THE LOWEST LEVEL. FALL, AND SAFETY PRECAUTIONS HAVE BEEN IN PLACE THROUGHOUT THE SHIFT.
[2021-12-14 07:08] LABS: BASOPHILS # (AUTO) 0.1 K/uL (0.0-0.2); EOSINOPHILS # (AUTO) 0.3 K/uL (0.0-0.4); EOSINOPHILS % (AUTO) 4.5 % (0.0-4.0); HEMATOCRIT 30.6 % (36-48); HEMOGLOBIN 10.4 g/dL (12.0-16.0); LYMPHOCYTES # (AUTO) 1.4 K/uL (1.0-5.5); LYMPHOCYTES % (AUTO) 22.9 % (20.5-51.5); MEAN CORPUSCULAR HEMOGLOBIN 30 pg (27-31); MEAN CORPUSCULAR HGB CONC 34 % (32-36); MEAN CORPUSCULAR VOLUME 88 fL (79.0-98.0); MONOCYTES # (AUTO) 0.4 K/uL (0.0-1.0); MONOCYTES % (AUTO) 6.9 % (1.7-9.3); NEUTROPHILS % (AUTO) 64.7 % (40.0-70.0); PLATELET COUNT (AUTO) 278 K/uL (130-430); RED BLOOD CELL COUNT(AUTO) 3.49 MIL/uL (4.2-6.2); RED CELL DISTRIBUTION WIDTH 15.5 % (9.0-15.0); WHITE BLOOD COUNT (AUTO) 6.2 K/uL (4.8-10.8)
[2021-12-14 07:21] LABS: ALANINE AMINOTRANSFERASE 15 U/L (12-78); ALBUMIN 2.8 g/dL (3.4-4.8); ANION GAP 9 (5-15); ASPARTATE AMINOTRANSFERASE 23 U/L (10-37); CALCIUM 10.3 mg/dL (8.4-11.0); CHLORIDE 106 mmol/L (98-107); CREATININE 1.35 mg/dL (0.55-1.30); GLUCOSE 134 mg/dL (70-99); POTASSIUM 3.4 mmol/L (3.5-5.1); SODIUM SERUM 135 mmol/L (136-145); TOTAL BILIRUBIN 0.3 mg/dL (0.0-1.0); UREA NITROGEN, BLOOD 20 mg/dL (8-21)
[2021-12-14] MEDS: D5/0.45 NS 1,000 ML IV SCH (07:45)
--- NOTE | 2021-12-14 08:00 | NUR ---
INITIAL NOTES Patient in bed resting, awake. Aox3. No s/s of distress noted. No SOB. Breathing is even and nonlabored. Vital signs obtained as documented. Patient denies pain. Family at bedside. Safety precautions in place and call light within reach.
--- NOTE | 2021-12-14 08:07 | NUR ---
CONSULT NEUROLOGY FALLS AMMON MCCOLLUM DR IS GENERAL OPERATOR S/W WITH DR JUARES IS IS AWARE OF CONSULT
--- NOTE | 2021-12-14 08:30 | NUR ---
critical Called and spoke to Dr. Chente Nicole, troponin 61. MD aware. No orders received regarding troponin.
[2021-12-14] MEDS ORDERED: POTASSIUM CHLORIDE 20 MEQ TAB.PRT.SR PO ONE (09:15)
[2021-12-14] MEDS: BRIMONIDINE TARTRATE 0.2% 5 mL EYE DROPS OP SCH ×2 (09:34→21:19)
[2021-12-14] MEDS: DORZOLAMIDE HCL/TIMOLOL MAL. 10 ML EYE DROPS (COSOPT) OP SCH ×2 (09:37→21:20)
[2021-12-14] MEDS: hydrALAZINE HCL 25 MG TABLET PO SCH ×3 (09:38→21:18)
[2021-12-14] MEDS: lisinopriL 20 MG TABLET PO SCH (09:41)
[2021-12-14] MEDS: ATORVASTATIN 20 MG TABLET PO SCH (09:41)
--- NOTE | 2021-12-14 12:04 | NUR ---
NOTES DR. JUARES, RAILROAD BRAKE OPERATOR NEUROLOGIST, IS WITH PATIENT AT THIS TIME. MD SPEAKING WITH FAMILY.
--- NOTE | 2021-12-14 13:00 | NUR ---
NOTES PATIENT IS EATING LUNCH. NO S/S OF DISTRESS NOTED. BREATHING IS EVEN AND NONLABORED. SAFETY PRECAUTIONS IN PLACE AND CALL LIGHT WITHIN REACH. FAMILY AT BEDSIDE.
--- NOTE | 2021-12-14 15:00 | NUR ---
NOTES PATIENT IS RESTING, EYES CLOSED. NO DISTRESS NOTED. BREATHING IS EVEN AND NONLABORED. SAFETY PRECAUTIONS IN PLACE AND CALL LIGHT WITHIN REACH.
--- NOTE | 2021-12-14 16:31 | NUR ---
Dietitian Recommendations * Mechanical Soft, CCHO, 2 gm Na diet * Encourage increase PO intakes LP, MS, RD Please refer to Nutrition Assessment for details. Addendum: 12/14/21 at [address] Amended: Links added.
[2021-12-14] MEDS: LATANOPROST 2.5 ML DROPS (XALATAN) OP SCH (17:07)
--- NOTE | 2021-12-14 19:15 | NUR ---
change of shift.pt.admit dx.r/o cva.language barrier extant;pashto/portuguese.family present.no c/o pain,nausea. general status stable.respiratory status stable;unlabored@room air.call light/telephone w/in access of the pt.
--- NOTE | 2021-12-14 19:33 | NUR ---
CLOSING NOTES PATIENT IN BED. NO S/S OF DISTRESS NOTED. DENIES PAIN OR SOB. BREATHING IS EVEN AND NONLABORED, NO CHANGE IN ASSESSMENT. DAUGHTER IS AT BEDSIDE. ALL NEEDS MET. PATIENT TO HAVE MRI DONE TOMORROW. ALL FORMS COMPLETE AND IN HER CHART. SAFETY PRECAUTIONS IN PLACE AND CALL LIGHT WITHIN REACH.
[2021-12-14 19:57] LABS: CKMB RELATIVE INDEX 0.7 (0.0-2.9); CREATINE KINASE MB 2.2 ng/mL (0-3.6)
--- NOTE | 2021-12-14 20:00 | NUR ---
pt.assessed.v/s assessed values wnl.no c/o pain,nausea.pt.apprised that snacks/beverages are available w/in the shift. no requests posited@this hour.pt.assessed for cleanliness.pt.repositioned.call light/telephone placed w/in access of the pt.
--- NOTE | 2021-12-14 20:30 | NUR ---
blood glucose assessed:value:125mg/dl.
--- NOTE | 2021-12-14 21:00 | NUR ---
2100p medications administered.pt.capable to ingest the po medications w/out difficulty.no c/o pain,nausea.no requests posited@this hour.call light/telephone w/in access of the pt.
[2021-12-14] MEDS: DONEPEZIL HCL 5 MG TABLET (ARICEPT) PO SCH (21:18)
--- NOTE | 2021-12-14 22:00 | NUR ---
pt.assessed.pt.quiescent,somnolent.per flacc pain mgx pt.absent facial grimaces/body posturing.pt.assessed for cleanliness. pt.repositioned.call light/telephone placed w/in access of the pt.
--- NOTE | 2021-12-15 | NUR ---
pt.assessed.v/s assessed values wnl.neuro assessment attended to.no c/o pain,nausea.no requests posited@this hour. pt.assessed for cleanliness.pt.repositioned.yoseph light/telephone placed w/in access of the pt.
[2021-12-15 01:15] VITALS: BP_SYST 182
--- NOTE | 2021-12-15 02:00 | NUR ---
pt.assessed.pt.quiescent,somnolent.per flacc pain mgx pt.absent facial grimaces/body posturing.pt.assessed for cleanliness.pt.repositioned.call light/telephone placed w/in access of the pt.
--- NOTE | 2021-12-15 04:00 | NUR ---
pt.assisted to the restroom.gait assessed.unsteady.pt.assisted return to bed.lower extremity weakness.noted bed alarm non-functioning:to replace bed in am.bsc provided.no c/o pain,nausea.call light/telephone placed w/in access of the pt.
--- NOTE | 2021-12-15 06:06 | NUR ---
pt.assessed.no c/o pain,nausea.no requests posited@this hour.pt.assessed for cleanliness. pt.repositioned.blood glucose assessed;value;111mg/dl.call light/telephone placed w/in access of the pt.pt.to submit to mri:questionnaire attended to per day shift.
[2021-12-15 08:05] VITALS: BP_SYST 154
[2021-12-15] MEDS: lisinopriL 20 MG TABLET PO SCH (08:23)
[2021-12-15] MEDS: BRIMONIDINE TARTRATE 0.2% 5 mL EYE DROPS OP SCH ×2 (08:24→20:13)
[2021-12-15] MEDS: DORZOLAMIDE HCL/TIMOLOL MAL. 10 ML EYE DROPS (COSOPT) OP SCH ×2 (08:24→20:13)
[2021-12-15] MEDS: hydrALAZINE HCL 25 MG TABLET PO SCH ×3 (08:24→20:15)
[2021-12-15] MEDS ORDERED: DEXTROSE 50%-WATER 50 ML DISP.SYRIN IVP PRN (10:30)
[2021-12-15] MEDS ORDERED: D5W 1,000 ML IV PRN (10:30)
[2021-12-15] MEDS ORDERED: GLUCOSE (DEXTROSE) ORAL GEL -Adults PO PRN (10:30)
[2021-12-15 11:43] VITALS: BP_SYST 136
[2021-12-15] MEDS ORDERED: HYDR-4039 PO (14:54)
[2021-12-15 16:12] VITALS: BP_SYST 177
--- NOTE | 2021-12-15 16:44 | NUR ---
patient does not meet criteria for SNF, patient is ambulating 82 ft w/ SBA
[2021-12-15] MEDS: LATANOPROST 2.5 ML DROPS (XALATAN) OP SCH (17:07)
--- NOTE | 2021-12-15 17:15 | NUR ---
rn notes patient remains on room air, no sob noted. BS normal all shift, no coverage needed. No imbalance noted, both side of body WNL movements. BP within MD's recommendation. Plan is to transfer to a nursing facility.
--- NOTE | 2021-12-15 19:15 | NUR ---
OPENING NOTES Patient resting in bed - no s/s pain or distress noted. Respirations even and unlabored - head of bed elevated. IV site patent - no s/s redness, infection, or infiltration. Bed locked and in lowest position. Call light within reach - bed alarm on.
[2021-12-15 20:00] VITALS: BP_SYST 162
[2021-12-15] MEDS: DONEPEZIL HCL 5 MG TABLET (ARICEPT) PO SCH (20:15)
[2021-12-16 00:09] VITALS: BP_SYST 142
[2021-12-16 08:00] VITALS: BP_SYST 169
[2021-12-16] MEDS: lisinopriL 20 MG TABLET PO SCH (08:18)
[2021-12-16] MEDS: DORZOLAMIDE HCL/TIMOLOL MAL. 10 ML EYE DROPS (COSOPT) OP SCH (08:19)
[2021-12-16] MEDS: BRIMONIDINE TARTRATE 0.2% 5 mL EYE DROPS OP SCH (08:19)
[2021-12-16] MEDS: hydrALAZINE HCL 25 MG TABLET PO SCH ×2 (08:19→17:48)
[2021-12-16 12:34] VITALS: BP_SYST 155
--- NOTE | 2021-12-16 13:38 | NUR ---
AMBULATION STANDBY ASSIST NEEDED GETTING OUT OF BED. PATIENT USE FWW SAFELY WITH CONSTANT INSTRUCTION FROM THIS COLLECTION SYSTEMS CONSULTANT. PATIENT STATED SHE FEELS WEAK AND MOSTLY TOOK SMALL STEPS. PATIENT AMBULATED 40 FEET. DAUGHTER IN THE ROOM WHILE PATIENT AMBULATES. DAUGHTER STATED THAT PATIENT LIVES IN A TWO STORY HOUSE AND HER BEDROOM IS UPSTAIRS. DAUGHTER IS CONCERN ABOUT PATIENT SAFETY AT HOME AND IS REQUESTING BE DISCHARGE TO GROUP HOME.
--- NOTE | 2021-12-16 15:15 | NUR ---
Home health PT order received waiting for agency to be assigned
[2021-12-16 15:56] VITALS: BP_SYST 154
--- NOTE | 2021-12-16 16:28 | NUR ---
INFORMED THANH BLAND THAT THE BATTERY NEEDS REPLACED ON THE TELE MONITOR UNABLE TO MONITOR PATIENT SINCE 152
--- NOTE | 2021-12-16 16:46 | NUR ---
NANCY VEDRE WITH [facility], PER [facility], PATIENT DAUGHTER IS AWARE THAT PATIENT DID NOT MEAT CRITERIA FOR SNF. HOME HEALTH IS SET UP AND WILL CONTACT HER FOR APPOINTMENT. PT IS SET UP 3X A WEEK
--- NOTE | 2021-12-16 16:46 | NUR ---
Discharge appointments and vendors arranged by [facility] Puppet Developer Taniya Carson [phone] Dr. [facility] will call with date and time Dr. Thornton [facility] will call with date and time [facility] [phone] Nursing [facility] Agency will call and schedule visit. Please call Patient Support Center [phone] for worsening symptoms or trouble getting your medicine. For care needs when provider office is closed, contact Darling [facility] at [phone] or Eduarda [facility] [phone].
--- NOTE | 2021-12-16 16:46 | NUR ---
per discussion with Dr. Gregory patient will discharge home no change in order per discusion with architectural practice manager beti Beckford , patient does not meet criteria for SNF, will approve Home PT 3xwk x 2wks
[2021-12-16] MEDS: LATANOPROST 2.5 ML DROPS (XALATAN) OP SCH (17:49)
[2021-12-16 18:44] VITALS: BP_SYST 133
[2021-12-16 18:55] VITALS: BP_SYST 133
--- NOTE | 2021-12-16 20:56 | NUR ---
Patient discharged with instructions and all belongings. Patient's daughter was not happy with the discharge due to safety concerns. Call placed to Dr. Colt cantu. Daughter spoke with Dr. Billingsley. All order and continued medications explained and discussed with the daughter by Dr. Billingsley and this nurse. Patient escorted in a wheelchair out to her transportation by staff.
--- NOTE | 2022-01-05 13:58 | NUR ---
Slumber Room Attendant CYCLE ANALYST made a Post Discharge Follow-Up Phone Call and spoke to former pts. daughter, also names Caitie who stated her mom has been readmitted into [facility] on 12/31 and that pt and pts. daughter would never return to [facility] due to poor satisfaction during pts. last encounter. Former pt. is going to discharge from [facility] and go to a SNF. CYCLE ANALYST asked if she wanted to speak to faby Quintanilla. CYCLE ANALYST shared his contact with the daughter.
== END 2021-12-16 20:56 | disposition home health service (06) | DRG 92 ==
LOC: SED 10:51 → STU 12:53
PROVIDERS: ADMIT Specialist; ATTEND Specialist
DX: G72.9 Myopathy, unspecified (principal); E44.1 Mild protein-calorie malnutrition; E11.319 Type 2 diabetes mellitus with unspecified diabetic retinopathy without macular edema; N18.9 Chronic kidney disease, unspecified; F03.90 Unspecified dementia, unspecified severity, without behavioral disturbance, psychotic disturbance, mood disturbance, and anxiety; Z20.822 Contact with and (suspected) exposure to COVID-19; I12.9 Hypertensive chronic kidney disease with stage 1 through stage 4 chronic kidney disease, or unspecified chronic kidney disease; E11.22 Type 2 diabetes mellitus with diabetic chronic kidney disease; Z79.891 Long term (current) use of opiate analgesic; Z79.899 Other long term (current) drug therapy; Z79.1 Long term (current) use of non-steroidal anti-inflammatories (NSAID); Z86.73 Personal history of transient ischemic attack (TIA), and cerebral infarction without residual deficits; T46.6X5A Adverse effect of antihyperlipidemic and antiarteriosclerotic drugs, initial encounter
CPT/HCPCS: 36415; 70450-TC; 71045; 73030; 73502; 76376; 76700-TC; 80048; 80053; 80307; 81003; 82550; 82553; 82570; 82962; 83036; 83735; 84443; 84484; 85025; 85610-TC; 85730-TC; 92610-GN; 93005; 93306; 97116-GP; 97530-GP; 99285; G0378; G0482; J1815

== ENCOUNTER 2022-01-21 12:17 | Inpatient (IN) | payer OTHER ==
[~2022-01-21] VITALS: Ht 154.9 cm; Wt 64.0 kg
[~2022-01-21 12:17] MED LIST changes: +ACET500C48 PO; +BRI.2% OP; +DORZ10DR13; +LATA2.5D14; -MECL-108 PO; +MECO10005; -NIFE90TA PO
[2022-01-21 12:21] VITALS: BP_SYST 117
[2022-01-21] MEDS ORDERED: iohexoL 350 mgI/mL, 100 ML INFUS..BTL IV ONE ×2 (12:38→14:56)
[2022-01-21] MEDS ORDERED: IOHEXOL 350 mgI/mL, 150 ML INFUS..BTL IV ONE (12:38)
[2022-01-21 12:47] LABS: BASOPHILS % (AUTO) 0.5 % (0.0-2.0); EOSINOPHILS # (AUTO) 0.1 K/uL (0.0-0.4); LYMPHOCYTES # (AUTO) 0.8 K/uL (1.0-5.5); LYMPHOCYTES % (AUTO) 9.7 % (20.5-51.5); MEAN CORPUSCULAR VOLUME 93 fL (79.0-98.0); MONOCYTES # (AUTO) 0.6 K/uL (0.0-1.0); MONOCYTES % (AUTO) 8.2 % (1.7-9.3); NEUTROPHILS # (AUTO) 6.3 K/uL (1.8-7.7); NEUTROPHILS % (AUTO) 80.6 % (40.0-70.0); PLATELET COUNT (AUTO) 168 K/uL (130-430); RED BLOOD CELL COUNT(AUTO) 3.68 MIL/uL (4.2-6.2); RED CELL DISTRIBUTION WIDTH 18.4 % (9.0-15.0); WHITE BLOOD COUNT (AUTO) 7.9 K/uL (4.8-10.8)
[2022-01-21 13:12] LABS: INR 1.2 (0.8-1.2); PROTHROMBIN TIME 11.7 SECS (9.5-12.5)
[2022-01-21 13:24] LABS: ANION GAP 13 (5-15); CHLORIDE 108 mmol/L (98-107); CREATININE 2.48 mg/dL (0.55-1.30); GLUCOSE 151 mg/dL (70-99); POTASSIUM 4.8 mmol/L (3.5-5.1); UREA NITROGEN, BLOOD 49 mg/dL (8-21)
[2022-01-21 13:32] LABS: CALCIUM 13.3 mg/dL (8.4-11.0)
[2022-01-21 13:39] LABS: ALANINE AMINOTRANSFERASE 13 U/L (12-78); ALBUMIN 3.6 g/dL (3.4-4.8); ASPARTATE AMINOTRANSFERASE 12 U/L (10-37); TOTAL BILIRUBIN 0.5 mg/dL (0.0-1.0)
[2022-01-21 15:18] LABS: BILIRUBIN,URINE NEGATIVE (NEGATIVE); BLOOD, URINE NEGATIVE (NEGATIVE); CLARITY/URINE CLEAR (CLEAR); COLOR,URINE YELLOW (YELLOW); GLUCOSE,URINE NEGATIVE (NEGATIVE); KETONES,URINE TRACE (NEGATIVE); LEUKOCYTE ESTERASE ,URINE NEGATIVE (NEGATIVE); NITRITE, URINE NEGATIVE (NEGATIVE); PH,URINE 5.5 (5.0-8.0); PROTEIN URINE TRACE (NEGATIVE); UROBILINOGEN,URINE 0.2 (0.2-1.0)
[2022-01-21] MEDS ORDERED: HYDR100T25 PO (15:29)
[2022-01-21] MEDS ORDERED: POTA-197 PO (15:35)
[2022-01-21] MEDS ORDERED: D5/0.45 NS 1,000 ML IV ONE (17:15)
[2022-01-21 18:45] VITALS: BP_SYST 116
[2022-01-21 20:00] VITALS: BP_SYST 120
[2022-01-22 02:00] VITALS: BP_SYST 137
[2022-01-22 07:47] VITALS: BP_SYST 165
[2022-01-22] MEDS: D5NS 1,000 ML IV SCH ×2 (10:54→22:11)
[2022-01-22 11:13] LABS: BASOPHILS % (AUTO) 0.6 % (0.0-2.0); EOSINOPHILS # (AUTO) 0.2 K/uL (0.0-0.4); EOSINOPHILS % (AUTO) 2.2 % (0.0-4.0); HEMATOCRIT 31.9 % (36-48); LYMPHOCYTES # (AUTO) 0.6 K/uL (1.0-5.5); MEAN CORPUSCULAR VOLUME 91 fL (79.0-98.0); MONOCYTES # (AUTO) 0.6 K/uL (0.0-1.0); MONOCYTES % (AUTO) 8.8 % (1.7-9.3); NEUTROPHILS # (AUTO) 5.7 K/uL (1.8-7.7); NEUTROPHILS % (AUTO) 79.4 % (40.0-70.0); PLATELET COUNT (AUTO) 163 K/uL (130-430); RED CELL DISTRIBUTION WIDTH 18.4 % (9.0-15.0); WHITE BLOOD COUNT (AUTO) 7.1 K/uL (4.8-10.8)
[2022-01-22 11:23] LABS: ANION GAP 8 (5-15); CHLORIDE 109 mmol/L (98-107); CREATININE 1.49 mg/dL (0.55-1.30); GLUCOSE 121 mg/dL (70-99); UREA NITROGEN, BLOOD 37 mg/dL (8-21)
[2022-01-22 11:40] LABS: CALCIUM 13.1 mg/dL (8.4-11.0)
[2022-01-22 12:00] VITALS: BP_SYST 172
[2022-01-22 14:49] LABS: BILIRUBIN,URINE NEGATIVE (NEGATIVE); BLOOD, URINE NEGATIVE (NEGATIVE); CLARITY/URINE CLEAR (CLEAR); COLOR,URINE YELLOW (YELLOW); GLUCOSE,URINE NEGATIVE (NEGATIVE); KETONES,URINE NEGATIVE (NEGATIVE); LEUKOCYTE ESTERASE ,URINE TRACE (NEGATIVE); NITRITE, URINE NEGATIVE (NEGATIVE); PH,URINE 5.5 (5.0-8.0); PROTEIN URINE TRACE (NEGATIVE); UROBILINOGEN,URINE 0.2 (0.2-1.0)
[2022-01-22 15:50] LABS: BACTERIA,URINE RARE /HPF (None Seen); MUCUS,URINE None Seen /LPF (None Seen); RBC,URINE 0-3 /HPF (0-3)
[2022-01-22 16:00] VITALS: BP_SYST 159
[2022-01-22 19:40] VITALS: BP_SYST 155
[2022-01-22] MEDS: DORZOLAMIDE HCL/TIMOLOL MAL. 10 ML EYE DROPS (COSOPT) BOTH EYES SCH (22:11)
[2022-01-22] MEDS: BRIMONIDINE TARTRATE 0.2% 5 mL EYE DROPS BOTH EYES SCH (22:11)
[2022-01-22] MEDS: INSULIN REGULAR, HUMAN 100 UNITS/ML, 3 ML VIAL (humuLIN R) SUBCUT PRN (22:31)
[2022-01-23 03:07] VITALS: BP_SYST 155
[2022-01-23 08:00] VITALS: BP_SYST 140
[2022-01-23] MEDS ORDERED: ASPIRIN 81 MG TAB.CHEW PO SCH (09:00)
[2022-01-23] MEDS ORDERED: ATORVASTATIN 10 MG TABLET PO SCH (09:00)
[2022-01-23] MEDS: D5NS 1,000 ML IV SCH ×3 (09:01→17:02)
[2022-01-23] MEDS: ASPIRIN 81 MG TAB.CHEW PO SCH (09:02)
[2022-01-23] MEDS: BRIMONIDINE TARTRATE 0.2% 5 mL EYE DROPS BOTH EYES SCH ×2 (09:02→20:51)
[2022-01-23] MEDS: ATORVASTATIN 10 MG TABLET PO SCH (09:02)
[2022-01-23] MEDS: DORZOLAMIDE HCL/TIMOLOL MAL. 10 ML EYE DROPS (COSOPT) BOTH EYES SCH ×2 (09:02→20:51)
[2022-01-23 09:10] LABS: BASOPHILS % (AUTO) 0.6 % (0.0-2.0); EOSINOPHILS # (AUTO) 0.2 K/uL (0.0-0.4); EOSINOPHILS % (AUTO) 2.8 % (0.0-4.0); HEMATOCRIT 29.5 % (36-48); LYMPHOCYTES # (AUTO) 1.1 K/uL (1.0-5.5); LYMPHOCYTES % (AUTO) 16.6 % (20.5-51.5); MEAN CORPUSCULAR VOLUME 91 fL (79.0-98.0); MONOCYTES # (AUTO) 0.7 K/uL (0.0-1.0); MONOCYTES % (AUTO) 10.9 % (1.7-9.3); NEUTROPHILS # (AUTO) 4.4 K/uL (1.8-7.7); NEUTROPHILS % (AUTO) 69.1 % (40.0-70.0); PLATELET COUNT (AUTO) 151 K/uL (130-430); RED BLOOD CELL COUNT(AUTO) 3.23 MIL/uL (4.2-6.2); RED CELL DISTRIBUTION WIDTH 17.7 % (9.0-15.0); WHITE BLOOD COUNT (AUTO) 6.4 K/uL (4.8-10.8)
[2022-01-23 09:15] LABS: ANION GAP 9 (5-15); CALCIUM 11.5 mg/dL (8.4-11.0); CHLORIDE 111 mmol/L (98-107); CREATININE 1.22 mg/dL (0.55-1.30); GLUCOSE 151 mg/dL (70-99); POTASSIUM 3.4 mmol/L (3.5-5.1); UREA NITROGEN, BLOOD 27 mg/dL (8-21)
[2022-01-23 09:23] LABS: ALANINE AMINOTRANSFERASE 13 U/L (12-78); ALBUMIN 2.6 g/dL (3.4-4.8); ASPARTATE AMINOTRANSFERASE 12 U/L (10-37); TOTAL BILIRUBIN 0.4 mg/dL (0.0-1.0)
[2022-01-23] MEDS ORDERED: POTASSIUM CHLORIDE 20 MEQ TAB.PRT.SR PO ONE (11:00)
[2022-01-23] MEDS: INSULIN REGULAR, HUMAN 100 UNITS/ML, 3 ML VIAL (humuLIN R) SUBCUT PRN ×3 (11:41→20:54)
[2022-01-23 12:20] VITALS: BP_SYST 158
[2022-01-23 15:40] VITALS: BP_SYST 157
[2022-01-23 19:20] VITALS: BP_SYST 148
[2022-01-23] MEDS: LATANOPROST 2.5 ML DROPS (XALATAN) BOTH EYES SCH (20:51)
[2022-01-24 00:59] VITALS: BP_SYST 168
[2022-01-24 04:49] VITALS: BP_SYST 154
[2022-01-24] MEDS: D5NS 1,000 ML IV SCH ×3 (05:41→17:21)
[2022-01-24 08:00] VITALS: BP_SYST 182
[2022-01-24 09:08] LABS: ALANINE AMINOTRANSFERASE 7 U/L (12-78); ALBUMIN 2.4 g/dL (3.4-4.8); ANION GAP 8 (5-15); ASPARTATE AMINOTRANSFERASE 7 U/L (10-37); CALCIUM 10.6 mg/dL (8.4-11.0); CHLORIDE 108 mmol/L (98-107); CREATININE 1.04 mg/dL (0.55-1.30); GLUCOSE 156 mg/dL (70-99); POTASSIUM 3.6 mmol/L (3.5-5.1); TOTAL BILIRUBIN 0.3 mg/dL (0.0-1.0); UREA NITROGEN, BLOOD 15 mg/dL (8-21)
[2022-01-24] MEDS: BRIMONIDINE TARTRATE 0.2% 5 mL EYE DROPS BOTH EYES SCH ×2 (09:13→20:47)
[2022-01-24] MEDS: ATORVASTATIN 10 MG TABLET PO SCH (09:13)
[2022-01-24] MEDS: DORZOLAMIDE HCL/TIMOLOL MAL. 10 ML EYE DROPS (COSOPT) BOTH EYES SCH ×2 (09:13→20:47)
[2022-01-24] MEDS: NIFEdipine 30 MG TAB.ER.24 PO SCH (09:13)
[2022-01-24] MEDS: ASPIRIN 81 MG TAB.CHEW PO SCH (09:13)
[2022-01-24 11:40] VITALS: BP_SYST 158
[2022-01-24 15:50] VITALS: BP_SYST 154
[2022-01-24] MEDS: INSULIN REGULAR, HUMAN 100 UNITS/ML, 3 ML VIAL (humuLIN R) SUBCUT PRN (17:23)
[2022-01-24 20:00] VITALS: BP_SYST 154
[2022-01-24] MEDS: LATANOPROST 2.5 ML DROPS (XALATAN) BOTH EYES SCH (20:47)
[2022-01-25] VITALS: BP_SYST 162
[2022-01-25] MEDS: D5NS 1,000 ML IV SCH ×3 (05:22→20:33)
[2022-01-25 08:00] VITALS: BP_SYST 166
[2022-01-25] MEDS: DORZOLAMIDE HCL/TIMOLOL MAL. 10 ML EYE DROPS (COSOPT) BOTH EYES SCH ×2 (08:19→20:34)
[2022-01-25] MEDS: ASPIRIN 81 MG TAB.CHEW PO SCH (08:19)
[2022-01-25] MEDS: BRIMONIDINE TARTRATE 0.2% 5 mL EYE DROPS BOTH EYES SCH ×2 (08:19→20:34)
[2022-01-25] MEDS: ATORVASTATIN 10 MG TABLET PO SCH (08:20)
[2022-01-25] MEDS: NIFEdipine 30 MG TAB.ER.24 PO SCH (08:20)
[2022-01-25] MEDS: INSULIN REGULAR, HUMAN 100 UNITS/ML, 3 ML VIAL (humuLIN R) SUBCUT PRN ×3 (11:36→20:42)
[2022-01-25 12:00] VITALS: BP_SYST 122
[2022-01-25 16:00] VITALS: BP_SYST 143
[2022-01-25 20:00] VITALS: BP_SYST 145
[2022-01-25] MEDS: LATANOPROST 2.5 ML DROPS (XALATAN) BOTH EYES SCH (20:33)
[2022-01-26] MEDS: D5NS 1,000 ML IV SCH ×3 (04:43→21:28)
[2022-01-26 08:00] VITALS: BP_SYST 166
[2022-01-26 08:13] LABS: ANION GAP 8 (5-15); CALCIUM 9.4 mg/dL (8.4-11.0); CHLORIDE 108 mmol/L (98-107); CREATININE 0.88 mg/dL (0.55-1.30); GLUCOSE 152 mg/dL (70-99); UREA NITROGEN, BLOOD 9 mg/dL (8-21)
[2022-01-26] MEDS: BRIMONIDINE TARTRATE 0.2% 5 mL EYE DROPS BOTH EYES SCH ×2 (09:00→21:25)
[2022-01-26] MEDS: DORZOLAMIDE HCL/TIMOLOL MAL. 10 ML EYE DROPS (COSOPT) BOTH EYES SCH ×2 (09:00→21:25)
[2022-01-26] MEDS: ASPIRIN 81 MG TAB.CHEW PO SCH (09:05)
[2022-01-26] MEDS: NIFEdipine 30 MG TAB.ER.24 PO SCH (09:05)
[2022-01-26] MEDS: ATORVASTATIN 10 MG TABLET PO SCH (09:05)
[2022-01-26] MEDS ORDERED: POTASSIUM CHLORIDE 40 MEQ, LIDOCAINE JECT 2% PF 100 MG 50 MG in NS 250 ML IV ONE (11:00)
[2022-01-26] MEDS: INSULIN REGULAR, HUMAN 100 UNITS/ML, 3 ML VIAL (humuLIN R) SUBCUT PRN ×2 (11:55→21:28)
[2022-01-26 12:00] VITALS: BP_SYST 146
[2022-01-26 16:00] VITALS: BP_SYST 143
[2022-01-26] MEDS ORDERED: NIFEdipine PO (16:02)
[2022-01-26 20:00] VITALS: BP_SYST 158
[2022-01-26] MEDS: LATANOPROST 2.5 ML DROPS (XALATAN) BOTH EYES SCH (21:25)
[2022-01-27 00:32] VITALS: BP_SYST 155
[2022-01-27] MEDS: INSULIN REGULAR, HUMAN 100 UNITS/ML, 3 ML VIAL (humuLIN R) SUBCUT PRN ×2 (06:04→18:13)
[2022-01-27] MEDS: D5NS 1,000 ML IV SCH ×2 (06:12→15:57)
[2022-01-27] MEDS: ATORVASTATIN 10 MG TABLET PO SCH (08:24)
[2022-01-27] MEDS: DORZOLAMIDE HCL/TIMOLOL MAL. 10 ML EYE DROPS (COSOPT) BOTH EYES SCH ×2 (08:24→21:26)
[2022-01-27] MEDS: BRIMONIDINE TARTRATE 0.2% 5 mL EYE DROPS BOTH EYES SCH ×2 (08:24→21:26)
[2022-01-27] MEDS: ASPIRIN 81 MG TAB.CHEW PO SCH (08:24)
[2022-01-27] MEDS: NIFEdipine 30 MG TAB.ER.24 PO SCH (08:24)
[2022-01-27 09:17] VITALS: BP_SYST 100
[2022-01-27 11:36] VITALS: BP_SYST 158
[2022-01-27 20:00] VITALS: BP_SYST 155
[2022-01-27] MEDS: LATANOPROST 2.5 ML DROPS (XALATAN) BOTH EYES SCH (21:26)
[2022-01-28 00:29] VITALS: BP_SYST 162
[2022-01-28 07:45] VITALS: BP_SYST 168
[2022-01-28] MEDS: ATORVASTATIN 10 MG TABLET PO SCH (08:56)
[2022-01-28] MEDS: NIFEdipine 30 MG TAB.ER.24 PO SCH (08:56)
[2022-01-28] MEDS: DORZOLAMIDE HCL/TIMOLOL MAL. 10 ML EYE DROPS (COSOPT) BOTH EYES SCH ×2 (08:56→21:20)
[2022-01-28] MEDS: ASPIRIN 81 MG TAB.CHEW PO SCH (08:56)
[2022-01-28] MEDS: BRIMONIDINE TARTRATE 0.2% 5 mL EYE DROPS BOTH EYES SCH ×2 (09:01→21:20)
[2022-01-28] MEDS: INSULIN REGULAR, HUMAN 100 UNITS/ML, 3 ML VIAL (humuLIN R) SUBCUT PRN (11:58)
[2022-01-28 13:29] VITALS: BP_SYST 122
[2022-01-28 13:56] VITALS: BP_SYST 122
[2022-01-28 18:06] VITALS: BP_SYST 179
[2022-01-28 20:00] VITALS: BP_SYST 179
[2022-01-28] MEDS: LATANOPROST 2.5 ML DROPS (XALATAN) BOTH EYES SCH (21:20)
[2022-01-29] VITALS: BP_SYST 182
[2022-01-29 08:00] VITALS: BP_SYST 154
[2022-01-29] MEDS ORDERED: ACETAMINOPHEN 500 MG TABLET PO PRN (09:00)
[2022-01-29] MEDS ORDERED: IBUPROFEN 400 MG TABLET PO PRN (09:00)
[2022-01-29] MEDS ORDERED: 0.45% NACL 1,000 ML IV SCH (09:15)
[2022-01-29] MEDS: ATORVASTATIN 10 MG TABLET PO SCH (09:28)
[2022-01-29] MEDS: ASPIRIN 81 MG TAB.CHEW PO SCH (09:28)
[2022-01-29] MEDS: NIFEdipine 30 MG TAB.ER.24 PO SCH (09:29)
[2022-01-29] MEDS: BRIMONIDINE TARTRATE 0.2% 5 mL EYE DROPS BOTH EYES SCH (09:31)
[2022-01-29] MEDS: DORZOLAMIDE HCL/TIMOLOL MAL. 10 ML EYE DROPS (COSOPT) BOTH EYES SCH (09:31)
[2022-01-29 11:55] VITALS: BP_SYST 147
[2022-01-29 13:22] VITALS: BP_SYST 156
== END 2022-01-29 17:58 | DRG 70 ==
LOC: SED 12:17 → STU 17:08 → OBSVTOIN 01-22 16:28 → STU 01-25 03:38
PROVIDERS: ADMIT Internal Medicine; ATTEND Internal Medicine
PROC: 4A00X4Z Measurement of Central Nervous Electrical Activity, External Approach (ICD-10-PCS; principal; 2022-01-26)
DX: G93.41 Metabolic encephalopathy (principal); N17.0 Acute kidney failure with tubular necrosis; N39.0 Urinary tract infection, site not specified; I44.2 Atrioventricular block, complete; I24.8 Other forms of acute ischemic heart disease; E87.20 Acidosis, unspecified; E86.9 Volume depletion, unspecified; I48.0 Paroxysmal atrial fibrillation; E78.00 Pure hypercholesterolemia, unspecified; Z20.822 Contact with and (suspected) exposure to COVID-19; I12.9 Hypertensive chronic kidney disease with stage 1 through stage 4 chronic kidney disease, or unspecified chronic kidney disease; E11.22 Type 2 diabetes mellitus with diabetic chronic kidney disease; N18.9 Chronic kidney disease, unspecified; Z86.73 Personal history of transient ischemic attack (TIA), and cerebral infarction without residual deficits; Z79.891 Long term (current) use of opiate analgesic; Z79.899 Other long term (current) drug therapy; Z95.0 Presence of cardiac pacemaker; Z91.81 History of falling
CPT/HCPCS: 36415; 70450-TC; 70496; 70498; 71045; 76376; 76770; 80048; 80053; 81000; 81003; 82330; 82570; 82962; 83605; 83880; 83970; 84302; 84484; 85025; 85610-TC; 85730-TC; 87081; 87086; 87186-TC; 92610-GN; 93005; 93971; 95816; 97110-GP; 97116-GP; 97530-GP; 99285; G0378; J1815; J3480; J7050; Q9967